=== PATIENT | male | born 1980 | race Two or more races ===

== ENCOUNTER 2019-06-12 11:30 | Emergency (ER) | payer MEDICAID, MEDICARE ==
[~2019-06-12] VITALS: Ht 188 cm; Wt 105.7 kg
[2019-06-12 11:32] VITALS: BP 127/81
--- NOTE | 2019-06-12 12:19 | NUR ---
PT PRESENTS W MEDICATION CHECK FOR DEPRESSION. PT STATES HE WANTS TO MAKE SURE HIS MEDICATION DOSE IS RIGHT SO HE DOESNT GO INTO MANIC DEPRESSION. PT IS IN [place] TO SEE HIS SON AND WANTS TO PRESENT WELL TO HIM. PT DENIES SI/HI. NO DRUG USE OR ETOH. PT IS PLEASANT AND THOUGHTFUL. ANSWERS ALL QUESTIONS APPROPIATELY. ALL BELONGINGS IN SECURED LOCKER. CELL PHONE AND WALLET W SECURITY. PA AT BEDSIDE.
[2019-06-12 12:42] LABS: BASOPHILS # (AUTO) 0.05 x10^3/uL (0-0.1); BASOPHILS % (AUTO) 1 % (0-1); EOSINOPHILS # (AUTO) 0.09 x10^3/uL (0-0.4); EOSINOPHILS % (AUTO) 1 % (1-7); LYMPHOCYTES # (AUTO) 3.23 x10^3/uL (1-3.4); LYMPHOCYTES % (AUTO) 31 % (22-44); MD NO; MEAN CORPUSCULAR HEMOGLOBIN 30.1 pg (27.5-34.5); MEAN CORPUSCULAR HGB CONC 33.1 g/dL (33.2-36.2); MEAN CORPUSCULAR VOLUME 90.8 fL (81-97); MEAN PLATELET VOLUME 7.8 fL (7.4-10.4); MONOCYTES % (AUTO) 7 % (2-9); NEUTROPHILS # (AUTO) 6.26 x10^3/uL (1.8-6.8); NEUTROPHILS % (AUTO) 61 % (42-75); PLATELET COUNT 327 x10^3/uL (130-400); RED BLOOD COUNT 4.85 x10^6/uL (4.38-5.82); RED CELL DISTRIBUTION WIDTH 14.4 % (9.4-14.8)
[2019-06-12 12:50] LABS: ALBUMIN 3.8 g/dL (3.4-5.0); ANION GAP 5 mmol/L (5-15); CALCIUM 8.9 mg/dL (8.5-10.1); CHLORIDE 105 mmol/L (98-107); CREATININE 1.28 mg/dL (0.7-1.3); SALICYLATE LEVEL < 1.7 mg/dL (2.8-20.0)
[2019-06-12 12:54] LABS: AMPHETAMINE SCREEN, URINE Negative (Negative); BARBITURATE SCREEN, URINE Negative (Negative); BENZODIAZEPINE SCREEN, URINE Negative (Negative); CANNABINOID SCREEN, URINE Negative (Negative); COCAINE SCREEN, URINE Negative (Negative); METHADONE SCREEN, URINE Negative (Negative); OPIATE SCREEN, URINE Negative (Negative)
--- NOTE | 2019-06-12 13:25 | NUR ---
OPERATIONS AND MAINTENANCE SUPERVISOR FOR EVAL OF PT. PT DOES NOT MEET CRITERIA FOR INPATIENT. PT WILL BE DC. ALL BELONGINGS BACK TO PT. CELL PHONE AND WALLET. PT LEFT. PROVIDER AWARE
== END 2019-06-12 13:48 | disposition home or self-care (01) ==
LOC: ED 12:39
DX: F32.9 Major depressive disorder, single episode, unspecified (principal); F41.9 Anxiety disorder, unspecified
CPT/HCPCS: 36415; 80048; 80307; 82040; 85025; 99284

== ENCOUNTER 2019-06-14 21:54 | Emergency (ER) | payer OTHER ==
[~2019-06-14] VITALS: Ht 188 cm; Wt 103.0 kg
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
[2019-06-14 22:46] LABS: AMPHETAMINE SCREEN, URINE Negative (Negative); BARBITURATE SCREEN, URINE Negative (Negative); BENZODIAZEPINE SCREEN, URINE Negative (Negative); CANNABINOID SCREEN, URINE Negative (Negative); COCAINE SCREEN, URINE Negative (Negative); METHADONE SCREEN, URINE Negative (Negative); OPIATE SCREEN, URINE Negative (Negative)
[2019-06-14 22:49] LABS: BASOPHILS # (AUTO) 0.04 x10^3/uL (0-0.1); BASOPHILS % (AUTO) 0 % (0-1); EOSINOPHILS # (AUTO) 0.09 x10^3/uL (0-0.4); EOSINOPHILS % (AUTO) 1 % (1-7); LYMPHOCYTES % (AUTO) 39 % (22-44); MD NO; MEAN CORPUSCULAR HEMOGLOBIN 29.4 pg (27.5-34.5); MEAN CORPUSCULAR HGB CONC 32.7 g/dL (33.2-36.2); MEAN CORPUSCULAR VOLUME 89.9 fL (81-97); MEAN PLATELET VOLUME 7.7 fL (7.4-10.4); MONOCYTES # (AUTO) 0.61 x10^3/uL (0.2-0.8); MONOCYTES % (AUTO) 6 % (2-9); NEUTROPHILS # (AUTO) 5.91 x10^3/uL (1.8-6.8); NEUTROPHILS % (AUTO) 54 % (42-75); PLATELET COUNT 303 x10^3/uL (130-400); RED BLOOD COUNT 5.03 x10^6/uL (4.38-5.82); RED CELL DISTRIBUTION WIDTH 15.1 % (9.4-14.8)
[2019-06-14 22:59] LABS: ALANINE AMINOTRANSFERASE 40 U/L (12-78); ALBUMIN 3.8 g/dL (3.4-5.0); ANION GAP 5 mmol/L (5-15); CALCIUM 9.1 mg/dL (8.5-10.1); CHLORIDE 106 mmol/L (98-107); CREATININE 1.38 mg/dL (0.7-1.3)
[2019-06-14 23:00] LABS: SALICYLATE LEVEL < 1.7 mg/dL (2.8-20.0)
[2019-06-14 23:01] LABS: ALKALINE PHOSPHATASE 71 U/L (45-117); BILIRUBIN,TOTAL 0.2 mg/dL (0.2-1.0); TOTAL PROTEIN 8.4 g/dL (6.4-8.2)
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
--- NOTE | 2019-06-14 23:55 | NUR ---
PT RESTING IN BED WATCHING TV, PT HAS SITTER AT PT DOOR, SI SECURE ROOM AND SI PRECAUTIONS ARE IN PLACE.
[2019-06-15] MEDS ORDERED: HALOPERIDOL 5 MG/ML IM PRN (00:30)
--- NOTE | 2019-06-15 01:13 | NUR ---
REFERRAL WAS FAXED TO [facility], [facility], [facility], [facility] AND [facility]
--- NOTE | 2019-06-15 02:39 | NUR ---
CALLED [facility] AND SPOKE TO DAVID THEY ARE NOT ACCEPT THE PT AT THIS TIME
--- NOTE | 2019-06-15 02:54 | NUR ---
PT RESTING IN BED WATCHING TV, PT HAS SITTER AT PT DOOR, SI SECURE ROOM AND SI PRECAUTIONS ARE IN PLACE. PT DENIED ANY NEEDS AT THIS TIME.
[2019-06-15] MEDS ORDERED: BENZONATATE 100 MG CAPSULE ONE (04:24)
[2019-06-15] MEDS ORDERED: BENZONATATE 100 MG CAPSULE PO ONE (04:30)
--- NOTE | 2019-06-15 06:01 | NUR ---
PT SLEEPING, PT HAS SITTER AT PT DOOR, SI SECURE ROOM AND SI PRECAUTIONS ARE IN PLACE. PT DENIED ANY NEEDS AT THIS TIME.
[2019-06-15] MEDS ORDERED: GUAIFENESIN 100 MG/5 ML, 5ML UDC PO ONE (06:38)
--- NOTE | 2019-06-15 06:44 | NUR ---
PT C/O SORE THROAT AND COUGH, PT REQUESTED ROBITISSIN. RN NOTIFIED DR
--- NOTE | 2019-06-15 06:58 | NUR ---
REPORT RECEIVED FROM MATT AMIN.
--- NOTE | 2019-06-15 06:59 | NUR ---
MEAL TRAY ORDERED AT THIS TIME.
[2019-06-15 07:08] VITALS: BP 141/83
--- NOTE | 2019-06-15 07:08 | NUR ---
PT MEDICATED PER EMAR. PT TOLERATED WELL.
--- NOTE | 2019-06-15 07:50 | NUR ---
MEAL TRAY PROVIDED AT THIS TIME.
--- NOTE | 2019-06-15 08:50 | NUR ---
PT RESTING IN BED. PT'S AOX4. RESPS EVEN AND UNLABORED. SITTER MONITORING FROM [facility] FOR SAFETY.
--- NOTE | 2019-06-15 10:27 | NUR ---
PT SLEEPING IN BED. RESPS EVEN AND UNLABORED. SITTER MONITORING FROM [facility] FOR SAFETY.
--- NOTE | 2019-06-15 10:40 | NUR ---
PT AMB TO BR WITH STEADY GAIT.
[2019-06-15] MEDS ORDERED: LURA120T PO (10:57)
[2019-06-15] MEDS ORDERED: DIVA500T2 PO (10:58)
[2019-06-15] MEDS ORDERED: HYDR50TA13 PO (10:59)
[2019-06-15] MEDS ORDERED: PRAZ5CAP2 PO (10:59)
--- NOTE | 2019-06-15 11:13 | NUR ---
MEAL TRAY ORDERED AT THIS TIME.
--- NOTE | 2019-06-15 11:52 | NUR ---
LUNCH TRAY PROVIDED AT THIS TIME.
--- NOTE | 2019-06-15 12:05 | NUR ---
REPORT GIVEN TO MAYKEL AT [facility].
[2019-06-15] MEDS ORDERED: DIVALPROEX 500 MG TABLET.DR PO ONE (13:11)
--- NOTE | 2019-06-15 13:11 | NUR ---
PT REQUESTING MEDICATIONS. EDMD NOTIFIED.
[2019-06-15] MEDS ORDERED: DIVALPROEX 500 MG TABLET.DR ONE (13:20)
--- NOTE | 2019-06-15 13:25 | NUR ---
PT MEDICATED PER EMAR. PT TOLERATED WELL.
--- NOTE | 2019-06-15 14:10 | NUR ---
PT AMB TO EXIT WITH [facility]. PT'S AOX4. RESPS EVEN AND UNLABORED.
== END 2019-06-15 14:10 ==
LOC: ED 22:56
DX: F23 Brief psychotic disorder (principal); F32.9 Major depressive disorder, single episode, unspecified; R45.851 Suicidal ideations; F17.210 Nicotine dependence, cigarettes, uncomplicated; Z88.8 Allergy status to other drugs, medicaments and biological substances; Z91.040 Latex allergy status
CPT/HCPCS: 36415; 80053; 80307; 85025; 99285; Q0177

== ENCOUNTER 2019-07-08 18:47 | Emergency (ER) | payer OTHER ==
[~2019-07-08] VITALS: Ht 188 cm; Wt 104.0 kg
[~2019-07-08 18:47] MED LIST: DIVA500T2 PO; HYDR50TA13 PO; LURA120T PO; PRAZ5CAP2 PO
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
[2019-07-08 19:48] VITALS: BP 140/98
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
== END 2019-07-08 19:56 | disposition other institution (70) ==
LOC: ED 19:09
DX: F10.10 Alcohol abuse, uncomplicated (principal); F12.10 Cannabis abuse, uncomplicated; F41.9 Anxiety disorder, unspecified; F20.9 Schizophrenia, unspecified; F32.9 Major depressive disorder, single episode, unspecified; F29 Unspecified psychosis not due to a substance or known physiological condition; Z72.9 Problem related to lifestyle, unspecified; Z91.14 Patient's other noncompliance with medication regimen; Z63.8 Other specified problems related to primary support group; Y90.9 Presence of alcohol in blood, level not specified
CPT/HCPCS: 99281

== ENCOUNTER 2019-07-30 13:57 | Emergency (ER) | payer OTHER ==
[~2019-07-30] VITALS: Ht 188 cm; Wt 109.0 kg
[2019-07-30 14:07] VITALS: BP 144/81
--- NOTE | 2019-07-30 15:11 | NUR ---
ASSUMED CARE OF PATIENT.
--- NOTE | 2019-07-30 15:43 | NUR ---
PT DISCHARGED PER DR MUSTAFA.
== END 2019-07-30 15:53 | disposition home or self-care (01) ==
LOC: ED 15:48
DX: J06.9 Acute upper respiratory infection, unspecified (principal); F17.200 Nicotine dependence, unspecified, uncomplicated
CPT/HCPCS: 71045; 99283

== ENCOUNTER 2019-07-30 18:10 | Emergency (ER) | payer SELFPAY ==
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
== END 2019-07-30 20:26 | disposition home or self-care (01) ==
LOC: ED 18:37
DX: M25.562 Pain in left knee (principal); Z72.9 Problem related to lifestyle, unspecified; Y08.89XA Assault by other specified means, initial encounter; Y93.89 Activity, other specified; Y92.89 Other specified places as the place of occurrence of the external cause; Y99.8 Other external cause status
CPT/HCPCS: 99283

== ENCOUNTER 2019-10-24 09:47 | Emergency (ER) | payer MEDICARE ==
[~2019-10-24] VITALS: Ht 188 cm; Wt 109.1 kg
[~2019-10-24 09:47] MED LIST changes: -HYDR50TA13 PO; +HYDR50TA99 PO
[2019-10-24 10:29] LABS: BASOPHILS # (AUTO) 0.02 x10^3/uL (0-0.1); BASOPHILS % (AUTO) 0 % (0-1); EOSINOPHILS # (AUTO) 0.14 x10^3/uL (0-0.4); EOSINOPHILS % (AUTO) 1 % (1-7); LYMPHOCYTES # (AUTO) 2.28 x10^3/uL (1-3.4); LYMPHOCYTES % (AUTO) 21 % (22-44); MD NO; MEAN CORPUSCULAR HEMOGLOBIN 30.1 pg (27.5-34.5); MEAN CORPUSCULAR HGB CONC 33.4 g/dL (33.2-36.2); MEAN CORPUSCULAR VOLUME 90.2 fL (81-97); MEAN PLATELET VOLUME 8.3 fL (7.4-10.4); MONOCYTES # (AUTO) 0.68 x10^3/uL (0.2-0.8); MONOCYTES % (AUTO) 6 % (2-9); NEUTROPHILS # (AUTO) 8.01 x10^3/uL (1.8-6.8); NEUTROPHILS % (AUTO) 72 % (42-75); PLATELET COUNT 265 x10^3/uL (130-400); RED BLOOD COUNT 4.53 x10^6/uL (4.38-5.82)
[2019-10-24 10:42] LABS: ALBUMIN 3.7 g/dL (3.4-5.0); ANION GAP 9 mmol/L (5-15); CALCIUM 9.6 mg/dL (8.5-10.1); CHLORIDE 105 mmol/L (98-107); CREATININE 1.22 mg/dL (0.7-1.3)
[2019-10-24 10:44] LABS: SALICYLATE LEVEL < 1.7 mg/dL (2.8-20.0)
[2019-10-24 10:48] LABS: AMPHETAMINE SCREEN, URINE Negative (Negative); BARBITURATE SCREEN, URINE Negative (Negative); BENZODIAZEPINE SCREEN, URINE Negative (Negative); CANNABINOID SCREEN, URINE Negative (Negative); COCAINE SCREEN, URINE Negative (Negative); METHADONE SCREEN, URINE Negative (Negative); OPIATE SCREEN, URINE Negative (Negative)
--- NOTE | 2019-10-24 10:50 | NUR ---
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 Sheldon in room to evaluate pt, refusing to answer MDs questions. Once MD left room this RN instructed pt to change into hospital gown and place all belongings into bags so they can be secured. Pt cooperative with this RN as well as labor relations representative who is at bedside to collect ordered blood sample. Pt able to change into hospital gown, warm blanket provided. All pt belongings placed in 2 bags, labeled with pt stickers and secured in locker. Room is secured, sitter within eyesight of pt, all safety measures observed.
--- NOTE | 2019-10-24 11:23 | NUR ---
Pt requesting "a snack right now then lunch at noon". Pt advised that meal tray will be ordered from dietary office. Pt states "That's not what I said." This RN advised pt that meal tray will be ordered for him and delivered as soon as it arrives. Pt states "Get out of my room". This RN left pt room. Room remains secured, sitter within eyesight of pt, all safety measures observed.
--- NOTE | 2019-10-24 11:59 | NUR ---
Meal tray delivered to pt with SI precautions observed.
[2019-10-24] MEDS ORDERED: HALOPERIDOL 5 MG/ML IM ONE (12:30)
--- NOTE | 2019-10-24 12:45 | NUR ---
REPORT RECEIVED FROM BRENNAN AGUILAR. ASSUMED CARE
[2019-10-24] MEDS ORDERED: HALOPERIDOL 5 MG/ML IM PRN (13:00)
[2019-10-24] MEDS ORDERED: HALOPERIDOL 5 MG/ML ONE (13:00)
[2019-10-24] MEDS ORDERED: OLANZAPINE 10 MG INJ IM PRN (13:00)
--- NOTE | 2019-10-24 15:05 | NUR ---
PT RESTING IN [facility]. TALKING TO HIMSELF.
--- NOTE | 2019-10-24 15:50 | NUR ---
PACKET FAXED TO [facility] AND [facility]
--- NOTE | 2019-10-24 15:51 | NUR ---
PT WALKED OUT OF ROOM WAS YELLING AT REGISTRATION STAFF TO BRING HIM FOOD. WHEN CONFRONTED HE SAID "GET THE FUCK OUT OF MY FACE BEFORE I HIT YOU". SECURITY WAS CALLED AND HE PT WAS ESCORTED BACK TO HIS ROOM.
[2019-10-24] MEDS: DIVALPROEX 500 MG TABLET.DR PO SCH (16:00)
--- NOTE | 2019-10-24 17:54 | NUR ---
SPOKE WITH [facility]. THEY WILL NOT BE ACCEPTING HIM AT THIS TIME ALSO SPOKE WITH AMY SARMIENTO FOR A NURSE TO NURSE. AWAITING THEIR DECISION.
--- NOTE | 2019-10-24 18:10 | NUR ---
PT PROVIDED SUICIDE SECURED MEAL TRAY
[2019-10-24] MEDS ORDERED: DIVALPROEX 500 MG TAB.ER.24H ONE (20:36)
--- NOTE | 2019-10-24 20:46 | NUR ---
PT RESTING IN [facility]. WATER GIVEN
--- NOTE | 2019-10-24 20:58 | NUR ---
PT TOLD ME "TO GO FUCK MYSELF" WHEN I WAS ATTEMPTING TO ASK SUICIDE ASSESSMENT QUESTIONS
[2019-10-24] MEDS ORDERED: LORazepam 2 MG/ML, 1ML ONE (23:25)
[2019-10-24] MEDS ORDERED: LORazepam 2 MG/ML, 1ML IM ONE (23:30)
--- NOTE | 2019-10-24 23:30 | NUR ---
REPORT FROM BRENNAN TSANG
--- NOTE | 2019-10-25 00:15 | NUR ---
PT SINGING, DANCING AND DOING PUSHUPS IN THE ROOM. PT DEMANDING FOOD AND DRINKS. PT REFUSING TO STAY IN HIS ROOM AND QUIET HIS VOICE. SECURITY CALLED AND PT MEDICATED FOR AGITATION.
[2019-10-25] MEDS ORDERED: DIPHENHYDRAMINE 50 MG/ML, 1ML ONE (00:29)
--- NOTE | 2019-10-25 00:59 | NUR ---
REPORT RECEIVED FROM BRENNAN MARQUES. PLAN OF CARE DISCUSSED. PATIENT SLEEPING, RESPIRATIONS EVEN AND UNLABORED. SITTER AT DOOR.
--- NOTE | 2019-10-25 01:59 | NUR ---
PATIENT SLEEPING, RESPIRATIONS EVEN AND UNLABORED. SITTER AT DOOR.
--- NOTE | 2019-10-25 03:18 | NUR ---
PATIENT SLEEPING, RESPIRATIONS EVEN AND UNLABORED. SITTER AT DOOR.
--- NOTE | 2019-10-25 04:30 | NUR ---
PATIENT SLEEPING, RESPIRATIONS EVEN AND UNLABORED. SITTER AT DOOR.
--- NOTE | 2019-10-25 05:15 | NUR ---
PATIENT PROVIDED WITH SOCKS
--- NOTE | 2019-10-25 05:34 | NUR ---
PATIENT AWAKE AND SINGING QUIETLY TO SELF, NAD NOTED, RESPIRATIONS EVEN AND UNLABORED. SITTER AT DOOR.
--- NOTE | 2019-10-25 06:36 | NUR ---
PATIENT SEEN WALKING TO AND FROM BATHROOM MULTIPLE TIMES, SINGING AND TALKING LOUDLY IN HALLWAY. PATIENT TRYING TO GET INTO ROOM ONE, WHILE THIS NURSE INTAKING PATIENT BIB EMS. PATIENT INSTRUCTED TO GO BACK TO HIS ROOM.
--- NOTE | 2019-10-25 06:59 | NUR ---
REPORT GIVEN TO BRENNAN RUBI. PLAN OF CARE DISCUSSED. WAITING FOR PHARMACY TO SEND IM ZYPREXA
--- NOTE | 2019-10-25 07:24 | NUR ---
PT RESTING IN BED, BLANKET PROVIDED, SAFETY PRECAUTIONS IN PLACE.
[2019-10-25] MEDS: DIVALPROEX 500 MG TABLET.DR PO SCH ×4 (09:00→20:07)
[2019-10-25] MEDS: LURASIDONE 20 MG TABLET PO SCH (09:16)
[2019-10-25] MEDS ORDERED: LORazepam 1MG TABLET PO ONE (11:30)
[2019-10-25] MEDS ORDERED: LORazepam 1MG TABLET ONE (11:42)
[2019-10-25] MEDS ORDERED: DIVALPROEX 500 MG TABLET.DR ONE ×2 (11:47→20:04)
--- NOTE | 2019-10-25 12:05 | NUR ---
MEAL PROVIDED, SAFETY PRECAUTIONS IN PLACE.
--- NOTE | 2019-10-25 13:41 | NUR ---
shower provided, safety precautions in place.
--- NOTE | 2019-10-25 14:24 | NUR ---
[facility] STILL NOT ACCEPTING
--- NOTE | 2019-10-25 17:42 | NUR ---
TALKED TO GENE AT [facility]. FAXED UPDATED PACKET PER HIS REQUEST
--- NOTE | 2019-10-25 18:02 | NUR ---
MEAL PROVIDED, SAFETY PRECAUTIONS IN PLACE.
--- NOTE | 2019-10-25 18:47 | NUR ---
REPORT TO ISAI AMIN
--- NOTE | 2019-10-25 18:56 | NUR ---
REPORT FROM GREYSON AMIN. PT RESTING WITH NO NEEDS AT THIS TIME. ROOM SECURED AND SITTER IN VIEW OF PT.
--- NOTE | 2019-10-25 19:52 | NUR ---
pt up to bathroom. Pt has no other needs at this time. sitter in view of pt
--- NOTE | 2019-10-25 20:08 | NUR ---
pt given night medications. pt becoming increasingly agitated but is redirectable at this time.
--- NOTE | 2019-10-25 21:15 | NUR ---
PT CALMER NOW AND IN BED. VSS. SITTER IN VIEW OF PT.
--- NOTE | 2019-10-25 22:32 | NUR ---
PT LAYING IN BED AND CALLING OUT OCCASIONALLY. PT DENIES ANY NEEDS AT THIS TIME. SITTER IN VIEW OF PT.
--- NOTE | 2019-10-26 00:05 | NUR ---
Pt sleeping. even rise and fall of chest observed. Sitter in view of pt
--- NOTE | 2019-10-26 01:09 | NUR ---
Pt up to bathroom with a steady gait. has no needs at this time. sitter in view of pt
--- NOTE | 2019-10-26 02:21 | NUR ---
PT SLEEPING. EVEN RISE AND FALL OF CHEST OBSERVED. SITTER IN VIEW OF PT
--- NOTE | 2019-10-26 03:17 | NUR ---
PT SLEEPING. EVEN RISE AND FALL OF CHEST OBSERVED. SITTER IN VIEW OF PT
--- NOTE | 2019-10-26 04:16 | NUR ---
pT RESTING WITH EYES CLOSED. EVEN RISE AND FALL OF CHEST OBSERVED. PT IN NAD. SITTER IN VIEW OF PT.
--- NOTE | 2019-10-26 05:20 | NUR ---
PT AWAKE AND TALKING TO SITTER. PT HAS NO NEEDS AT THIS TIME AND APPEARS TO BE IN A GOOD MOOD THIS MORNING
--- NOTE | 2019-10-26 06:21 | NUR ---
PT UP TO BATHROOM WITH NO NEEDS AT THIS TIME.
--- NOTE | 2019-10-26 06:52 | NUR ---
REPORT RECEIVED FROM ISAI AMIN.
[2019-10-26 07:14] VITALS: BP 131/80
--- NOTE | 2019-10-26 07:16 | NUR ---
PT AMB TO BR AND BACK TO ROOM WITH STEADY GAIT
--- NOTE | 2019-10-26 07:18 | NUR ---
PT AWAKE AND TALKING HIMSELF AT THIS TIME. SITTER MONITORING FROM HALLWAY FOR SAFETY. ROOM REMAINS SECURE. PT DENIES SI/HI AND SUICIDAL ASSESSMENT DONE.
--- NOTE | 2019-10-26 07:46 | NUR ---
medication ordered from pharmacy at this time.
--- NOTE | 2019-10-26 08:14 | NUR ---
pt using hospital phone per request. sitter monitoring.
[2019-10-26] MEDS ORDERED: DIVALPROEX 500 MG TABLET.DR ONE (08:17)
[2019-10-26] MEDS: DIVALPROEX 500 MG TABLET.DR PO SCH (08:31)
[2019-10-26] MEDS: LURASIDONE 20 MG TABLET PO SCH (08:32)
--- NOTE | 2019-10-26 08:35 | NUR ---
pt medicated per emar. pt tolerated well.
--- NOTE | 2019-10-26 09:07 | NUR ---
pt taking shower per pt's request. sitter monitoring.
--- NOTE | 2019-10-26 09:50 | NUR ---
after shower, pt denies to dress. pt nakid in room. this rn and sitter educated regarding policy. pt states"i don't wanna dress now.i will do later." security paged.
--- NOTE | 2019-10-26 10:20 | NUR ---
pt used hospital phone per pt's request.
--- NOTE | 2019-10-26 10:52 | NUR ---
report given to rona Landin will call back when it's ready.
--- NOTE | 2019-10-26 11:05 | NUR ---
PT STATES"I WANNA LEAVE NOW. I WANNA TALK TO MY COMMERCIAL LENDING ASSISTANT." THIS RN EDUCATED REGARDING LEGAL HOLD. PT VERBALIZED UNDERSTANDING.
== END 2019-10-26 12:03 ==
LOC: ED 10:14
DX: G89.29 Other chronic pain (principal); M79.672 Pain in left foot; M79.671 Pain in right foot; F23 Brief psychotic disorder; R00.0 Tachycardia, unspecified; F17.200 Nicotine dependence, unspecified, uncomplicated; Z00.00 Encounter for general adult medical examination without abnormal findings
CPT/HCPCS: 36415; 73620; 80048; 80164; 80307; 82040; 85025; 93005; 96372; 99285; J1630; J2060

== ENCOUNTER 2019-12-07 13:16 | Emergency (ER) | payer MEDICARE ==
[~2019-12-07] VITALS: Ht 188 cm; Wt 103.0 kg
[2019-12-07] MEDS ORDERED: LURA120T PO (13:41)
[2019-12-07] MEDS ORDERED: DIVA500T4 PO (13:41)
--- NOTE | 2019-12-07 13:51 | NUR ---
THIS PT WAS ESCORTED IN WITH LAW ENFORCEMENT. PT TALKING TO AREA OF ROOM WHERE NO ONE IS STANDING, TALKING WHEN NO ONE IS IN THE ROOM. PT MAKING GRANDEOUS STATEMENTS, HAS FLIGHT OF IDEAS. COOPERATIVE AT THIS TIME. WILL CONTINUE TO MONITOR. PT IN VIEW OF SITTER.
[2019-12-07 14:04] LABS: BASOPHILS # (AUTO) 0.04 x10^3/uL (0-0.1); BASOPHILS % (AUTO) 1 % (0-1); EOSINOPHILS % (AUTO) 2 % (1-7); LYMPHOCYTES # (AUTO) 1.88 x10^3/uL (1-3.4); LYMPHOCYTES % (AUTO) 31 % (22-44); MD NO; MEAN CORPUSCULAR HEMOGLOBIN 30.2 pg (27.5-34.5); MEAN CORPUSCULAR HGB CONC 33.5 g/dL (33.2-36.2); MEAN CORPUSCULAR VOLUME 90.1 fL (81-97); MEAN PLATELET VOLUME 8.6 fL (7.4-10.4); MONOCYTES # (AUTO) 0.31 x10^3/uL (0.2-0.8); MONOCYTES % (AUTO) 5 % (2-9); NEUTROPHILS # (AUTO) 3.76 x10^3/uL (1.8-6.8); NEUTROPHILS % (AUTO) 62 % (42-75); PLATELET COUNT 224 x10^3/uL (130-400); RED BLOOD COUNT 4.53 x10^6/uL (4.38-5.82)
[2019-12-07 14:14] LABS: ALBUMIN 3.7 g/dL (3.4-5.0); ANION GAP 7 mmol/L (5-15); CALCIUM 8.9 mg/dL (8.5-10.1); CHLORIDE 107 mmol/L (98-107); CREATININE 1.44 mg/dL (0.7-1.3)
[2019-12-07 14:16] LABS: SALICYLATE LEVEL < 1.7 mg/dL (2.8-20.0)
[2019-12-07 14:17] LABS: ALANINE AMINOTRANSFERASE 22 U/L (12-78); ALKALINE PHOSPHATASE 55 U/L (45-117); BILIRUBIN,TOTAL 0.4 mg/dL (0.2-1.0); TOTAL PROTEIN 7.8 g/dL (6.4-8.2)
--- NOTE | 2019-12-07 14:29 | NUR ---
PT REFUSING VITAL SIGNS FOR RESTRAINTS, PT REMAINS CALM.
[2019-12-07] MEDS ORDERED: LURASIDONE 20 MG TABLET PO SCH (14:30)
[2019-12-07 14:36] LABS: AMPHETAMINE SCREEN, URINE Negative (Negative); BARBITURATE SCREEN, URINE Negative (Negative); BENZODIAZEPINE SCREEN, URINE Negative (Negative); CANNABINOID SCREEN, URINE Negative (Negative); COCAINE SCREEN, URINE Negative (Negative); METHADONE SCREEN, URINE Negative (Negative); OPIATE SCREEN, URINE Negative (Negative)
--- NOTE | 2019-12-07 15:35 | NUR ---
PT URINATED ON FLOOR X2, BOTH TIMES, HE REFUSED HELP FROM A MALE TO HOLD THE URINAL. STATES HE WILL ONLY GO IF THIS RN OR OSHAUNESSY HOLDS IT OTHERWISE HE WILL CONTINUE TO PEE ON THE FLOOR.
--- NOTE | 2019-12-07 16:17 | NUR ---
PT SHIMMING IN BED TO UNCOVER HIS PENIS, EDUCATED THAT THIS IS INAPPRORIATE AND RECOVERED, PT CONTINUES BEHAVIOR. Addendum: 12/07/19 at 1723 by BJORN MAGI
--- NOTE | 2019-12-07 16:59 | NUR ---
Attempted to inquire with patient about his birthdate as their is two patients in our system with similar birthdates [birth year] and [birth year] and the same name, but patient refused to talk to this MT and attempted to spit on this MT.
--- NOTE | 2019-12-07 17:10 | NUR ---
PT REFUSED TO COVER SELF/ PENIS. PT ASKING FOR FEMALE NURSE TO COVER HIM. MALE NURSE SENT IN. PT ATTEMPTED TO SIT ON THAT NURSE.
[2019-12-07] MEDS: OLANZAPINE 10 MG INJ IM PRN (17:20)
--- NOTE | 2019-12-07 17:21 | NUR ---
PT MAKING THREATS TO RN BEFORE BEING MEDICATED, PT STILL ASKED FOR MEDICATION. PT MEDICATED TO MAR. BANEGAS AT BEDSIDE.
--- NOTE | 2019-12-07 17:27 | NUR ---
PT HAS SHIFTED IN BED TO AGAIN EXPOSE HIMSELF. YELLING AT NURSES OR TECHS WHO ATTEMPT TO GO IN TO TALK WITH HIM.
--- NOTE | 2019-12-07 18:08 | NUR ---
PT COOPERATIVE WITH INTERVENTIONS. PT SINGING TO SELF. DIET TRAY ORDERED. WILL CONITNUE TO MONITOR.
--- NOTE | 2019-12-07 18:10 | NUR ---
PT HAS REMAINED IN VIEW OF THE SITTER THROUGHOUT STAY.
[2019-12-07] MEDS ORDERED: DIVALPROEX 500 MG TAB.ER.24H ONE (18:28)
--- NOTE | 2019-12-07 18:30 | NUR ---
PT EATING FOOD, COMPLAINT WITH VS.
--- NOTE | 2019-12-07 19:14 | NUR ---
REPORT GIVEN TO BRENNAN FRAIRE. PT LAYING IN BED, EYES CLOSED, RESPIRATIONS EVEN AND UNLABORED.
--- NOTE | 2019-12-07 19:17 | NUR ---
BEDSIDE REPORT RECEIVED FROM BRENNAN BUTCHER. ASSUMED CARE OF PT. PT SLEEPING. NO DISTRESS NOTED. SITTER OUTSIDE DOOR MONITORING PT. ROOM REMAINS SECURE.
--- NOTE | 2019-12-07 19:35 | NUR ---
PT COUGHING FREQUENTLY. DENIES ANY OTHER COMPLAINTS. CHARGE, RN. AWARE. WILL CONTACT ADMITTING PHYSICIAN.
--- NOTE | 2019-12-07 20:23 | NUR ---
DR. MELGOZA AWARE OF COUGHING. ORDER PUT IN FOR COVID TEST. PT REQUESTING FOOD. SECURITY TRAY PROVIDED TO PT. SITTER MONITORING PT. ROOM REMAINS SECURE.
--- NOTE | 2019-12-07 20:49 | NUR ---
PT IN ROOM MASTURBATING. PT ASKED TO STOP. ADAMANTLY REFUSES STATING "WHY THIS IS MY HOUSE, I DO WHAT I WANT HERE". SECURITY CALLED. COVID SWAB DELAYED DUE TO PT NOT BEING COOPERATIVE AT THIS TIME.
[2019-12-07] MEDS ORDERED: OLANZAPINE 10 MG INJ IM ONE (21:00)
[2019-12-07] MEDS: DIVALPROEX 500 MG TAB.ER.24H PO SCH (21:00)
[2019-12-07] MEDS ORDERED: MIDAZOLAM 1 MG/ML, 5ML IM ONE (21:00)
[2019-12-07] MEDS ORDERED: QUETIAPINE 100MG TABLET PO SCH ×2 (21:00→23:30)
--- NOTE | 2019-12-07 21:00 | NUR ---
SECURITY CALLED DUE TO PT BECOMING ERRATIC AND NOT COOPERATING WITH STAFF, PT BECAME AGGRESSIVE AND YELLING AT STAFF. PT PLACED IN [address] HE PROVIDED ORDER.
--- NOTE | 2019-12-07 22:01 | NUR ---
PT CONTINUES TO SLEEP INTERMITTENTLY. WAKES UP AND YELLS AT STAFF. ATTEMPTED TO SPEAK TO PT IN REGARDS TO REMOVING RESTRAINTS. PT UNABLE TO HOLD CONVERSATION WITHOUT BEING THREATENING TO STAFF. NOT DISPLAYING BEHAVIORS CONSISTENT WITH REMOVING RESTRAINTS. REFUSING NIGHT TIME MEDS. PT ALSO SPITTING AT STAFF.
[2019-12-07] MEDS ORDERED: MIDAZOLAM 1 MG/ML, 2ML ONE (23:12)
[2019-12-07] MEDS ORDERED: MIDAZOLAM 1 MG/ML, 5ML ONE (23:14)
[2019-12-07] MEDS ORDERED: LORazepam 1MG TABLET ONE (23:27)
[2019-12-07] MEDS ORDERED: QUETIAPINE 100MG TABLET ONE (23:27)
[2019-12-07] MEDS ORDERED: LORazepam 1MG TABLET PO ONE (23:30)
--- NOTE | 2019-12-07 23:32 | NUR ---
REPORT GIVEN TO BRENNAN BASILIO. PT MOVED TO ROOM 40
--- NOTE | 2019-12-07 23:59 | NUR ---
Report received from BRENNAN Alvarez. This RN assumed care. Versed admin per sep. PO meds held; patient refused.
--- NOTE | 2019-12-08 00:20 | NUR ---
Patient remains in restraints for safety; status checks documented. Patient sleeping in gurney. Respirations even and unlabored. Sitter outside, room secured, belongings in locked cabinet.
--- NOTE | 2019-12-08 01:30 | NUR ---
Patient easily arousable; attempted vital signs however patient became agitated and uncooperative, spitting at staff and thrashing around.
--- NOTE | 2019-12-08 01:32 | NUR ---
Patient remains in restraints for safety; status checks documented. Patient sleeping in gurney. Respirations even and unlabored. Sitter outside, room secured, belongings in locked cabinet.
--- NOTE | 2019-12-08 02:30 | NUR ---
Patient remains in restraints for safety; status checks documented. Patient sleeping in gurney. Respirations even and unlabored. Sitter outside, room secured, belongings in locked cabinet.
--- NOTE | 2019-12-08 03:00 | NUR ---
Patient awoke requesting to use the bathroom; provided urinal. Patient is calmer and cooperative.
[2019-12-08] MEDS ORDERED: LORazepam 1MG TABLET PO ONE ×2 (03:30→09:30)
--- NOTE | 2019-12-08 03:30 | NUR ---
Patient requesting to be let out of restraints and provided with food. Advised patient we can release two of his restraints and provide food. 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 You are holding me against my will. I have insurance; I do not have Medicaid, I am not homelses, and I am paying for this stay even though I do not want to be here. I have a lot of money." Attempted to admin PO meds to calm patient however he refused.
[2019-12-08] MEDS ORDERED: LORazepam 1MG TABLET ONE ×2 (03:31→09:30)
[2019-12-08] MEDS ORDERED: ZIPRASIDONE 20 MG INJ IM ONE ×4 (03:38→20:00)
--- NOTE | 2019-12-08 03:46 | NUR ---
GURDEEP RN: PACKET FAXED TO [facility].
--- NOTE | 2019-12-08 03:50 | NUR ---
Admin IM meds per sep. Patient extremely agitated and angry. Patient attempting to spit on staff. Restraints to remain on patient for safety. Status checks documented. Unable to get a set of vitals at this time due to patient behavior. Sitter outside, room secured, belongings locked in cabinet.
--- NOTE | 2019-12-08 04:45 | NUR ---
Patient remains in restraints for safety; status checks documented. Patient sleeping in gurney. Respirations even and unlabored. Patient easily arousable and becomes agitated. Sitter outside, room secured, belongings in locked cabinet.
--- NOTE | 2019-12-08 05:30 | NUR ---
Patient awake and touching himself inappropriately. Patient remains in restraints for safety; status checks documented. Respirations even and unlabored. Sitter outside, room secured, belongings in locked cabinet.
--- NOTE | 2019-12-08 07:09 | NUR ---
PT RESTING ON [facility]. SITTER OUTSIDE ROOM, GARAGE DOORS DOWN.
--- NOTE | 2019-12-08 08:40 | NUR ---
PT UNCOVERING HIMSELF IN ROOM, SPEAKING LOUDLY TOO HIMSELF. WENT INTO ROOM TO PLACE GOWN OVER PT. PT BEING VERBALLY AGGRESSIVE TOWARDS THIS RN. PT EDUCATED ON NEED TO COVER UP. MAKING STATEMENTS SUCH "I DON'T HAVE TO DO SHIT, THIS IS MY ROOM I PAID FOR THIS, WHERE THE FUCK IS MY BREAKFAST, YOU'RE GOING TO GET ME BREAKFAST WHETHER I COVER UP OR NOT".
--- NOTE | 2019-12-08 09:21 | NUR ---
TASK RN: WITH REASSESMENT PATIENT ORIENTED TO PLACE/TIME/REASON FOR HOSPITALIZATION. HOWEVER ACUTELY DELUSIONAL "YOU HAVE NO RIGHT TO KEEP ME HERE. I HAVE NO LEGAL CHARGE. 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 I MAKE THE CALL BITCH." AFTER EXTENSIVE RE-DIRECTION PATIENT AGREEABLE TO TAKING PO PILLS (DAILY + PRN) WHICH WILL HOPEFULLY CALM/REDUCE DELUSIONS ENOUGH THAT IT WILL BE SAFE TO REMOVE RESTRAINTS. PHARMACY CALLED TO DELIVER LATUDA. PHARMACY REPORTS MEDICINE WILL BE READY " SOON WE CAN ENTER IT INTO OUR SYSTEM. MAYBE UP TO A FEW HOURS OR SO."
[2019-12-08] MEDS ORDERED: DIVALPROEX 500 MG TAB.ER.24H ONE (09:29)
--- NOTE | 2019-12-08 09:45 | NUR ---
TASK RN: PATIENT REFUSING PO MEDS ORDERED LATUDA DOSE IN "SUPPOSED TO BE 120MG NOT 40MG." TO NOTIFY PROVIDER. WILL DOSE WITH PRNS VIA IM ROUTE TO EXPEDITE RESTRAINT DISCONTINUATION ULICES
[2019-12-08] MEDS ORDERED: MIDAZOLAM 1 MG/ML, 2ML IM STA (09:55)
[2019-12-08] MEDS ORDERED: MIDAZOLAM 1 MG/ML, 2ML ONE (09:58)
[2019-12-08] MEDS: OLANZAPINE 10 MG INJ IM PRN (10:15)
--- NOTE | 2019-12-08 10:15 | NUR ---
MEDICATED PER EMAR WITH IM VERSED AND ZYPREXA. PLACED ON INDUSTRIAL FABRIC CUTTER 2L NC PRECAUTION
--- NOTE | 2019-12-08 10:45 | NUR ---
PT RESTING ON GURNEY, REFUSING MONITORING. CHEST RISE AND FALL OBSERVED. SITTER OUTSIDE ROOM. WILL CONTINUE TO MONITOR.
[2019-12-08] MEDS ORDERED: LURASIDONE 20 MG TABLET PO SCH (11:00)
--- NOTE | 2019-12-08 11:45 | NUR ---
PT SEEN BY LILIA DAWSON.
--- NOTE | 2019-12-08 11:55 | NUR ---
MED GASTON FROM PHARMACY.
--- NOTE | 2019-12-08 12:04 | NUR ---
PT RESTING ON GURNEY, CHEST RISE AND FALL OBSERVED. SITTER OUTSIDE OF ROOM.
--- NOTE | 2019-12-08 13:15 | NUR ---
SECURITY CALLED TO ASSIST THIS RN IN TAKING OFF ONE ARM RESTRAINT TO ALLOW PT TO EAT.
--- NOTE | 2019-12-08 13:19 | NUR ---
RIGHT ARM RESTRAINT RELEASED TO ALLOW PT TO EAT.
--- NOTE | 2019-12-08 13:46 | NUR ---
PT COOPERATIVE W/ VS. URINATED ON FLOOR, MOVING PENIS WHILE THIS RN WAS IN THE ROOM.
--- NOTE | 2019-12-08 14:05 | NUR ---
REMOVED ONE LEG RESTRAINT TO TRIAL HOW PT WOULD DO W/ ONLY 2 RESTRAINTS. PT MADE STATMENTS SUCH "YOU'RE LYING TO AN SCRIPT EDITOR LITTLE GIRL" AND "DON'T TALK TO ME FAT ASS", "GET OUT OF MY ROOM WHITE BOY". PT INFORMED WE WERE NOT TAKING OFF ALL RESTRAINTS AT THIS TIME BECAUSE WE WANTED TO ASSESS HIS BEHAVIOR. PT INFORMED HE CAN NOT BE VERBALLY OR PHYSICALLY AGGRESSIVE TOWARDS STAFF. WILL REASSESS PT FOR NEED FOR RESTRAINTS.
--- NOTE | 2019-12-08 14:35 | NUR ---
PT SITTING UP ON BED MASTURBATING. REQUESTED TO STOP. PT REFUSES. EDUCATED ON HOW IT IS INAPPROPRIATE. PT STATES "THIS IS MY FUCKING HOUSE I CAN DO WHATEVER I WANT".
--- NOTE | 2019-12-08 16:02 | NUR ---
BREAK RN. PT RESTING BED, SPEAKING TO HIMSELF. ROOM REMAINS SECURED, SITTER AT BEDSIDE.
--- NOTE | 2019-12-08 16:39 | NUR ---
PT COOPERATIVE AND CALM FOR COVID SWAB. SECURITY CALLED TO REMOVE REMAINING RESTRAINTS. SOAKER HIDES BILL NOTIFIED.
--- NOTE | 2019-12-08 16:51 | NUR ---
RESTRAINTS REMOVED. PT AMBULATED TO THE BR W/ A STEADY GAIT.
--- NOTE | 2019-12-08 16:56 | NUR ---
PT AGITATED AND PACING AROUND ROOM. PT STATES "YOU HAVE SOMETHING FOR ME TO SIGN AND IF YOU DONT PRODUCE SOMETHING FOR ME TO SIGN YOURE GOING TO BE KNOWN A STUPID HOMELESS WHITE BITCH". PT KEEPS OPENING DOOR, INSULTING STAFF AND SLAMMING THE DOOR SHUT. THREW GOWN OUTSIDE ROOM.
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
--- NOTE | 2019-12-08 17:21 | NUR ---
RECEIVED JERILYN FROM PHARMACY. ASKED IF PT WOULD TAKE IT. PT STATES HE WOULD ONLY TAKE IT W/ DINNER. INFORMED PT WE DO NOT FEEL SAFE ENOUGH TO REMOVE RESTRAINTS TO ALLOW PT TO EAT SINCE HE IS MAKING THREATS TOWARDS STAFF AT THIS TIME. PT STATES "YOU MAYRA BITCH, GET OUT OF MY ROOM, YOU MAYRA BITCH".
--- NOTE | 2019-12-08 18:05 | NUR ---
PT SPIT ON RIKY AMIN. RIKY AMIN CALLED SECURITY TO HAVE PT RESTRAINTS READJUSTED SO HE CAN'T PULL SPIT LOPEZ OFF. SECURITY STATES THAT NO MATTER WHAT POSITION HE IS IN HE WILL PULL THE SPIT LOPEZ OFF. PT RESTRAINTS NOT READJUSTED.
--- NOTE | 2019-12-08 18:35 | NUR ---
PT RESTING ON GURNEY IN 4 POINT RESTRAINTS, RESP EVEN AND UNLABORED, NADN. SITTER OUTSIDE ROOM, GARAGE DOORS DOWN. WILL CONTINUE TO MONITOR.
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
[2019-12-08] MEDS ORDERED: LORazepam 2 MG/ML, 1ML ONE (19:36)
--- NOTE | 2019-12-08 19:47 | NUR ---
PT SCREAMING AT STAFF AND THREATENING TO HARM SATFF. PT MEDICATED PER MAR. WILL CONTINUE TO MONITOR.
[2019-12-08] MEDS ORDERED: LORazepam 2 MG/ML, 1ML IM ONE (20:00)
[2019-12-08] MEDS ORDERED: DIPHENHYDRAMINE 50 MG/ML, 1ML IM ONE (20:00)
--- NOTE | 2019-12-08 20:57 | NUR ---
pt appears calmer but is very aggitated when aroused. pt called this rn "a lying pig bitch". pt refusing night medication and vital signs. sitter in view of pt.
[2019-12-08] MEDS: DIVALPROEX 500 MG TAB.ER.24H PO SCH (21:00)
--- NOTE | 2019-12-08 22:03 | NUR ---
Pt provided with food, security called to remove left arm restraint. Sitter in direct line of vision.
--- NOTE | 2019-12-08 23:39 | NUR ---
Vital signs taken, pt having flight of ideas at this time. Pt asked if he could "fly coastal this time" Sitter in direct line of sight. Pt resting on right side, left arm still unrestrained. Informed patient if he continued to act correctly, we would attempt to remove another restraint. Pt agreed with plan of care.
--- NOTE | 2019-12-09 01:18 | NUR ---
Pt given crackers and orange juice, per request. Pt attempting to argue with RN and does not respond to redirection. Sitter in direct line of sight.
--- NOTE | 2019-12-09 01:35 | NUR ---
Pt called nurse into room. Pt stated "all you bitches are the same. You think everyone should be treated the same when they come to the hospital. I pay good money for my insurance i should get what ever I want!" When attempts to redirect failed, I turned to walk out of the room. Pt threw orange juice at nurse and yelled "fuck off bitch!" Security called, pt placed back in 4 point restraints.
--- NOTE | 2019-12-09 02:59 | NUR ---
Continuation of restraints documentation signed by MD Alfonso.
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
--- NOTE | 2019-12-09 05:45 | NUR ---
Pt attempted to void on floor, nurse caught patient and placed bedpan under patient. After pt was finished, he threw bedpan on floor and smeared contents on bed. Security called to assist in medicating patient and readjusting restraints. Pt arms switched to left arm up and right arm by side. Pt refusing to answer RN questions at this time but was cooperative with security.
[2019-12-09] MEDS ORDERED: DIPHENHYDRAMINE 50 MG/ML, 1ML ONE (05:47)
--- NOTE | 2019-12-09 07:44 | NUR ---
REPORT RECIEVED FROM NOC RN, PT RESTING ON GURNEY AT THIS TIME, REMAINS IN 4PT RESTRAINTS, DISCUSSED CARE WITH PT. PT AGREEABLE TO NOT THROW THINGS AND SPIT AT THIS RN THESE BEHAVIORS HAVE BEEN DONE WITH PREVIOUS STAFF. PT STATES WHEN HE CAN EAT HE WILL NOT ACT WITH HOSTILE BEHAVIOR TO STAFF. AWAITING BFAST TRAY AT THIS TIME, PLAN TO DC UPPER ARM RESTRAINTS FOR MEAL
--- NOTE | 2019-12-09 08:33 | NUR ---
SECURITY CALLED TO RELEASE ONE UPPER RESTRAINT SO PT MAY EAT BREAKFAST TRAY AND USE URINAL
--- NOTE | 2019-12-09 09:15 | NUR ---
REPORT RECEIVED FROM BRENNAN HIDALGO, PT HAS CONSUMED BREAKFAST. RESTRAINTS IN PLACE TO RT ARM, AND BILATERAL ANKLES. SITTER MONITORING FROM [facility] FOR SAFETY. ROOM SECURE. PT LAYING ON GURNEY, AWAKE AND ALERT. RESPS EVEN AND UNLABORED.
--- NOTE | 2019-12-09 09:18 | NUR ---
REPORT GIVEN TO NBA AMIN
[2019-12-09] MEDS ORDERED: DIVALPROEX 500 MG TAB.ER.24H ONE ×2 (10:03→20:29)
[2019-12-09] MEDS: LURASIDONE 20 MG TABLET PO SCH ×2 (10:04→10:15)
[2019-12-09] MEDS: DIVALPROEX 500 MG TAB.ER.24H PO SCH ×3 (10:04→20:45)
--- NOTE | 2019-12-09 10:30 | NUR ---
late entry for 1030: pt agreed to taking am meds; took am meds, see emar. pt awake, alert, cooperative. 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 pt stating that he needs to leave today, remains a flight risk. pt educated regarding restraint removal criteria: pt must demonstrate he will not harm staff or self, and remain in room as he is on a legal hold. pt does not demonstrate understanding/agreement of these criteria at this time. 3+ pulses to bilateral radial/dorsalis regions. cms intact throughout. pt consumed all of breakfast, pt given snack and juice. pt denies any pain at this time. pt denies any needs at this time. pt a&o, resps even and unlabored. speaking in full sentences without difficulty. sitter monitoring from hallway for safety. extra sheets and empty meal tray removed from room. room secure. safety checks in place per restraint policy.
--- NOTE | 2019-12-09 11:00 | NUR ---
LATE ENTRY FOR 1100 D/T PATIENT CARE : RESTRAINT RENEWAL ORDER SIGNED BY MD MAGANA. PT UNWILLING TO AGREE TO RESTRAINT REMOVAL CRITERIA, PT MAKING STATEMENTS ALLUDING TO THE FACT HE MAY TRY TO [facility]. PT REMAINS FLIGHT RISK.
--- NOTE | 2019-12-09 11:00 | NUR ---
Psyc EUNICE Arenas at bedside to round on patient. report given to EUNICE Arenas regarding pt's progress in last few hrs. pt agreed to take PO meds but continues to expose himself and masturbate despite staff requests to cease. Pt is a flight risk, making comments such as "I don't need to be here, I need to leave today." sitter monitoring from hallway for safety, room remains secure.
--- NOTE | 2019-12-09 11:46 | NUR ---
pt sitting on gurney, a&o, resps even and unlabored. sitter monitoring from [address] for safety. pt continuing to expose himself and masturbate despite requests from staff to cease. jos at this time.
--- NOTE | 2019-12-09 13:41 | NUR ---
VS REASSESSED, BILATERAL RADIAL PULSES AND DORSALIS PULSES 3+. RESPS EVEN AND UNLABORED. PT A&O, CALM AND COOPERATIVE. PT GIVEN SI MEAL TRAY, MILK AND ORANGE JUICE IN STYROFOAM CUPS. RESTRAINT REMOVAL CRITERIA DISCUSSED WITH PT. PT DEMONSTRATES AGREEMENT WITH REMOVAL CRITERIA, STATING HE WILL NOT ATTEMPT TO HARM SELF OR STAFF. SECURITY CALLED, HORACE AT BESIDE X 2. LEATHER RESTRAINT REMOVED FROM RT WRIST AND PLACED TO LEFT WRIST. LEFT ANKLE RESTRAINT REMOVED. LEATHER RESTRAINTS REMAINT TO LEFT WRIST AND RIGHT ANKLE. PT EDUCATED ALL RESTRAINTS WILL BE REMOVED IF HE CONTINUES TO COOPERATE. PT DENIES PAIN. ROOM REMAINS SECURE. SITTER MONITORING FROM REPLACED BY [facility] FOR SAFETY.
--- NOTE | 2019-12-09 13:45 | NUR ---
REPORT FROM BRENNAN ARANGO. ASSUMING CARE AT THIS TIME.
--- NOTE | 2019-12-09 14:20 | NUR ---
PT LYING ON GURNEY IN RESTRAINTS X2. NO NEEDS EXPRESSED. PT IN SECURED ROOM WITH SITTER AT DOORWAY.
--- NOTE | 2019-12-09 15:00 | NUR ---
LATE ENTRY FOR 1500: RESTRAINT RENEWAL FORM SIGNED BY MD HARPER. PT REMAINS IN 2 PT RESTRAINTS, EDUCATED REGARDING REMOVAL CRITERIA. PT BECOMING MORE COOPERATIVE.
--- NOTE | 2019-12-09 16:05 | NUR ---
BREAK RN: SNACK PROVIDED (2MILKS, OJ, AND CRACKERS) MEAL TRAY ORDERED.
--- NOTE | 2019-12-09 17:05 | NUR ---
pt resting in secured room, cooperative and calm at this time. meal tray provided. pt understand requirements for removing restraints and is agreeable to all conditions (no harm to staff or self, no spitting, must stay in room unless rn is notified prior to leaving, etc...). security notified and will take restraints off. sitter remains at doorway.
--- NOTE | 2019-12-09 17:11 | NUR ---
restraints removed. pt calm and cooperative. extra drinks provided. pt thankful. room secured adn sitter remains at doorway.
--- NOTE | 2019-12-09 18:32 | NUR ---
pt cooperative at this time. pt singing and talking to self in secured room. no needs expressed. sitter remains at doorway.
--- NOTE | 2019-12-09 18:49 | NUR ---
report to reji cruz to assume care at this time.
--- NOTE | 2019-12-09 19:01 | NUR ---
Report received from BRENNAN Casiano. This RN to assume care. Patient up to bathroom then talking on the phone. Patient acting pleasant toward staff.
--- NOTE | 2019-12-09 19:15 | NUR ---
Patient off the phone and walking back to room. Asking for a phonebook to call a superintendent plant because he "isn't supposed to be here." Patient states, "I have a and kids I have to get back to. I am being held here against my will. I shouldn't be here. I was released from [facility] and came here willingly and I don't want to be here anymore." Patient requesting drinks.
--- NOTE | 2019-12-09 19:53 | NUR ---
Patient requesting to speak to a doctor so "I can get out of here."
--- NOTE | 2019-12-09 20:07 | NUR ---
Patient out of restraint x3 hours with no incidents.
--- NOTE | 2019-12-09 20:16 | NUR ---
Patient constantly up in the hallway for phone use. Advised patient there will be no more phone use for the night. Patient asked to return to room. Patient cooperating at this time but making statements such as, "this could be my hospital."
--- NOTE | 2019-12-09 20:41 | NUR ---
PT AMBULATORY TO RN DESK. STATES "I NEED TO SPEAK TO THE ON-CALL PSYCHIATRIST. 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 I HAVEN'T SEEN A DOCTOR SINCE I GOT HERE." INFORMED PT THAT I WOULD LET HIS PRIMARY NURSE KNOW.
--- NOTE | 2019-12-09 20:53 | NUR ---
Patient requested to be seen by a psychiatrist as he hasn't been seen by one since he's been here, according to patient. Patient, however, was seen by EUNICE Arenas from [facility]. Patient requesting 12 pieces of paper and a pencil to write to his teacher vocal.
--- NOTE | 2019-12-09 21:07 | NUR ---
Offered a single piece of paper and a crayon to patient; he refused. Patient standing at door with door open. Patient refusing to go in room with the door shut. He states "I have a right to stand here and you can't take my rights away from me. My mom just and I don't want to be by myself in a room with the door shut. Can you understand that? Do you have a heart to understand that?" Advised patient that security would be called if he cannot cooperate. Patient states, "Good. Call security. I need to take some aggression out."
--- NOTE | 2019-12-09 21:50 | NUR ---
Patient pacing the room with door open talking and singing to himself.
--- NOTE | 2019-12-09 22:35 | NUR ---
Patient offered meds to help him sleep; patient denied the need stating, "I don't like drugs."
--- NOTE | 2019-12-09 23:08 | NUR ---
Patient pacing the room talking to himself. Sitter outside, room secured, belongings locked in cabinet.
--- NOTE | 2019-12-09 23:21 | NUR ---
Patient up to bathroom.
--- NOTE | 2019-12-09 23:37 | NUR ---
CIRCULAR SHEAR OPERATOR: PT WALKING PAST NURSES STATION STATING HES MAKING A PHONE CALL. PT WAS ASKED TO RETURN TO HIS ROOM. PT STATES "NO WHITE MAGGOT IS GONNA TELL ME WHAT TO DO, BITCH". SECURITY CALLED TO HELP ASSIST PT BACK TO ROOM.
--- NOTE | 2019-12-09 23:59 | NUR ---
Provided patient with snacks and drinks. Patient is cooperative with this RN.
--- NOTE | 2019-12-10 01:19 | NUR ---
Patient standing at the door. Remains calm and cooperative at this time. Sitter outside, room secured, belongings locked in cabinet.
--- NOTE | 2019-12-10 02:20 | NUR ---
Patient standing at door talking and laughing to himself. Patient remains calm and cooperative. Sitter outside, room secured, belongings in locked cabinet.
--- NOTE | 2019-12-10 03:00 | NUR ---
Patient standing at door talking and singing to himself. Patient remains calm and cooperative. Sitter outside, room secured, belongings in locked cabinet.
--- NOTE | 2019-12-10 04:11 | NUR ---
Patient standing at door talking and singing to himself. Offered patient sleep aid; patient denied the need "because my mom and I want to sit in my misery." Patient refuses to keep door closed. Sitter outside, room secured, belongings in locked cabinet.
--- NOTE | 2019-12-10 04:48 | NUR ---
Patient laying face down on the bed with his feet in the air talking to himself. Sitter outside, room secure, belongings with patient.
--- NOTE | 2019-12-10 05:27 | NUR ---
Patient requesting to see a psychiatrist and asking when one will be here. Advised patient he will not see a psychiatrist this morning and that one cannot be contacted during night clerk auditor hours. Patient does not want to see WATER TAXI FERRY OPERATOR.
--- NOTE | 2019-12-10 05:51 | NUR ---
Patient continuously coming out of room and walking down the zaman. Patient upset at other staff walking by disinfecting the area. Patient asked to return to his room; patient not cooperative with any male staff. Security called to inform patient that he needs to stay in his room. Patient states he will cooperate with all staff. Requesting sprite.
--- NOTE | 2019-12-10 06:15 | NUR ---
Patient in room with door shut walking around naked. Sitter outside, room secure, belongings locked in cabinet.
--- NOTE | 2019-12-10 06:37 | NUR ---
Patient standing at door talking to himself. Patient advised of oncoming shift. Meal tray and morning meds ordered. Sitter outside, room secured, belongings locked in cabinet.
--- NOTE | 2019-12-10 06:50 | NUR ---
Report to BRENNAN Chisholm.
--- NOTE | 2019-12-10 07:02 | NUR ---
REPORT RECEIVED FROM OEMR AMIN. PT STANDING IN DOOR WAY SPEAKING W/ SITADLEE.
[2019-12-10 07:23] VITALS: BP 135/96
--- NOTE | 2019-12-10 07:30 | NUR ---
PT INFORMED HE MUST KEEP DOOR TO ROOM SHUT, PT AGITATED AND AGGRESSIVE.
[2019-12-10] MEDS ORDERED: DIVALPROEX 500 MG TAB.ER.24H ONE (07:37)
[2019-12-10] MEDS: LURASIDONE 20 MG TABLET PO SCH (07:41)
[2019-12-10] MEDS: DIVALPROEX 500 MG TAB.ER.24H PO SCH (07:41)
--- NOTE | 2019-12-10 07:41 | NUR ---
PT MEDICATED PER EMAR.
--- NOTE | 2019-12-10 08:00 | NUR ---
BREAKFAST TRAY GIVEN TO PT. PT STANDING IN ROOM MASTUREBATING.
--- NOTE | 2019-12-10 09:03 | NUR ---
PT REQUESTED TO USE PHONE. INFORMED PT SINCE HE HAS BEEN COOPERATIVE FOR THE PAST HOUR HE MAY MAKE 1, 5 MINUTE PHONE CALL. PT ASKED FOR 10 MINUTES AND THEN 7 MINUTES. INFORMED PT HE MAY ONLY HAVE 5 MINUTES BECAUSE WE CAN NOT HAVE PTS STANDING IN THE JIM[place] AND THAT HE MUST RETURN TO ROOM AFTER, PT AGREED. STARTED PT TIME AT 0906.
--- NOTE | 2019-12-10 09:14 | NUR ---
PT STATESD ON PHONE "I GET TO LEAVE TODAY, I'M GOING TO GO [facility]".
--- NOTE | 2019-12-10 09:15 | NUR ---
PT REQUESTING TO SPEAK TO "A REAL PSYCHIATRIST, SOMEONE WHO WENT TO MED SCHOOL LIKE ME, 11 YEARS". PT INFORMED WE HAVE TO TECHNICAL MAINTENANCE SPECIALIST'S THAT COME IN AND THAT THEY WILL BE HERE AROUND 10-11 AND WE CAN ADDRESS HIM LEAVING THEN.
--- NOTE | 2019-12-10 09:30 | NUR ---
PT CAME OUTSIDE OF ROOM AND SHUT DOOR. STATES HE WILL NOT GOING BACK IN ROOM. PT STATES HE WANTS TO LEAVE, TOLD THIS RN TO CALL SECURITY TO COME RESTRAIN HIM, STATES HE WILL GO BACK IN ROOM WHEN SECURITY COMES. SECURITY CALLED. PT WENT BACK IN ROOM, SWINGING ARMS IN AIR IF PUNCHING SOMEONE. THIS RN ASKED PT TO SIT ON [facility]. PT COMPLIED, THIS RN ASKED SECURITY TO LEAVE TO SEE IF WE CAN DEESCALATE THE SITUATION. PT NOW SITTING ON GURPATERSON. SITTER OUTSIDE ROOM. GARAGE DOORS DOWN.
--- NOTE | 2019-12-10 09:48 | NUR ---
PT SINING AND DANCING LOUDLY PACING AROUND ROOM AND LOOKING OUT OF DOOR WINDOW.
[2019-12-10] MEDS ORDERED: HALOPERIDOL 5 MG/ML ONE (10:08)
--- NOTE | 2019-12-10 10:17 | NUR ---
PT WALKED OUT OF ROOM STATING HE HAD TO USE THE BATHROOM, PT ASKED TO RETURN TO ROOM AND INFORMED I WOULD PROVIDE HIM A URINAL. WAS VERBALLY AGGRESSIVE TO STAFF. RETURNED TO ROOM AND PROVIDED URINAL. SECURITY ON STANDBY FOR RESTRAINTS. PT AGREED TO TAKE IM SHOT OF HALDOL. PT MEDICATED PER EMAR W/O DIFFICULTY. SAID SINCE HE AGREED TO TAKE IT WILLINGLY WE WOULD START WITH 5MG AND CAN GIVE ANOTHER IF HE CONTINUES TO BE AGRESSIVE. PT NOW RESTING ON [facility] ROOM, GARAGE DOORS DOWN.
[2019-12-10] MEDS ORDERED: HALOPERIDOL 5 MG/ML IM ONE (10:30)
--- NOTE | 2019-12-10 10:43 | NUR ---
PT RESTING ON GURNEY, SITTER OUTSIDE ROOM, GARAGE DOORS DOWN, NO EPISODES OF AGITATION SINCE MEDICATED.
--- NOTE | 2019-12-10 12:34 | NUR ---
PT PROVIDED LUNCH TRAY.
--- NOTE | 2019-12-10 12:51 | NUR ---
PT GIVEN 1 BELONGINGS BAG, INSTRUCTED TO CHANGE TO PREPARE FOR DC.
--- NOTE | 2019-12-10 13:13 | NUR ---
Patient given discharge instructions and they have confirmed that they understand the instructions. Patient ambulatory with steady gait.
== END 2019-12-10 13:14 | disposition home or self-care (01) ==
LOC: EDBD → MERGE 15:43 → ED 15:43
DX: R50.9 Fever, unspecified (principal); Z20.828 Contact with and (suspected) exposure to other viral communicable diseases; F22 Delusional disorders; F23 Brief psychotic disorder; F17.200 Nicotine dependence, unspecified, uncomplicated
CPT/HCPCS: 36415; 71045; 80053; 80164; 80307; 85025; 93005; 96372; 99285; J1200; J1630; J2060; J2250; J3486; U0001

== ENCOUNTER 2019-12-14 14:27 | Emergency (ER) | payer MEDICARE ==
[~2019-12-14] VITALS: Ht 188 cm; Wt 90.0 kg
[~2019-12-14 14:27] MED LIST changes: +DIVA500T4 PO
[2019-12-14 14:34] VITALS: BP 158/88
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
--- NOTE | 2019-12-14 15:11 | NUR ---
edmd/rn signed on restraint order at this time. it is in chart.
--- NOTE | 2019-12-14 15:50 | NUR ---
requesting sitter at this time.
--- NOTE | 2019-12-14 15:59 | NUR ---
advisory internship at bedside. pt refused to talk to advisory internship at this time.
--- NOTE | 2019-12-14 16:23 | NUR ---
sitter monitoring pt from [facility] for safety at this time.
--- NOTE | 2019-12-14 16:34 | NUR ---
4 points retraints removed per edmd verbal order. snacks/juice provided at this time. belonging bag in room. awaiting dc.
--- NOTE | 2019-12-14 16:54 | NUR ---
Patient given discharge instructions and they have confirmed that they understand the instructions. Patient ambulatory with steady gait.
== END 2019-12-14 16:55 | disposition home or self-care (01) ==
LOC: ED 15:38
DX: F22 Delusional disorders (principal); F20.9 Schizophrenia, unspecified; F32.9 Major depressive disorder, single episode, unspecified
CPT/HCPCS: 99285

== ENCOUNTER 2020-07-02 11:07 | Emergency (ER) | payer BC, MEDICARE ==
[~2020-07-02] VITALS: Ht 188 cm; Wt 88.0 kg
[2020-07-02 11:21] VITALS: BP 126/89
--- NOTE | 2020-07-02 11:42 | NUR ---
PT HERE FOR INJURY AND WOUND CARE TO RIGHT FOOT/TOES. PRIOR PArtial TOE AMPUTATION, CURRENTLY MULTIPLE WOUNDS TO TOES. PT ABLE TO AMBULATE STEADY TO ROOM. PT ALSO REQUESTING PSYCH EVAL. NO SI/SA.
--- NOTE | 2020-07-02 11:48 | NUR ---
REPORT RECEIVED FROM BRENNAN RUBI FOR TRANSFER OF PATIENT CARE.
--- NOTE | 2020-07-02 11:54 | NUR ---
PATIENT AMBULATED TO BATHROOM WITH STEADY GAIT, URINE CUP GIVEN FOR SAMPLE.
--- NOTE | 2020-07-02 12:13 | NUR ---
URINE SAMPLE COLLECTED AND SENT TO LAB.
--- NOTE | 2020-07-02 12:28 | NUR ---
PATIENT TO IMAGING.
[2020-07-02 12:38] LABS: AMPHETAMINE SCREEN, URINE Negative (Negative); BARBITURATE SCREEN, URINE Negative (Negative); BENZODIAZEPINE SCREEN, URINE Negative (Negative); CANNABINOID SCREEN, URINE Negative (Negative); COCAINE SCREEN, URINE Negative (Negative); METHADONE SCREEN, URINE Negative (Negative); OPIATE SCREEN, URINE Negative (Negative)
[2020-07-02 12:48] LABS: BASOPHILS % (AUTO) 0 % (0-1); EOSINOPHILS % (AUTO) 0 % (1-7); LYMPHOCYTES % (AUTO) 23 % (22-44); MEAN CORPUSCULAR HEMOGLOBIN 31.1 pg (27.5-34.5); MEAN PLATELET VOLUME 8.4 fL (7.4-10.4); MONOCYTES % (AUTO) 4 % (2-9); NEUTROPHILS % (AUTO) 72 % (42-75); PLATELET COUNT 271 x10^3/uL (130-400); RED BLOOD COUNT 5.14 x10^6/uL (4.38-5.82); RED CELL DISTRIBUTION WIDTH 13.7 % (9.4-14.8)
[2020-07-02 12:49] LABS: MD NO
--- NOTE | 2020-07-02 12:49 | NUR ---
EUNICE SANDY AT BEDSIDE FOR PSYCH EVALUATION.
[2020-07-02 12:56] LABS: ALBUMIN 4.4 g/dL (3.4-5.0); ANION GAP 4 mmol/L (5-15); CALCIUM 9.8 mg/dL (8.5-10.1); CHLORIDE 112 mmol/L (98-107)
[2020-07-02 13:00] LABS: ALANINE AMINOTRANSFERASE 39 U/L (12-78); ALKALINE PHOSPHATASE 65 U/L (45-117); BILIRUBIN,TOTAL 0.3 mg/dL (0.2-1.0); CREATININE 1.58 mg/dL (0.7-1.3); TOTAL PROTEIN 8.7 g/dL (6.4-8.2)
[2020-07-02 13:01] LABS: SALICYLATE LEVEL < 1.7 mg/dL (2.8-20.0)
--- NOTE | 2020-07-02 13:26 | NUR ---
SPOKE WITH BRENNAN SANDY ABOUT POC. WAITING TO HEAR IF [facility] HAS A MALE BED FOR PATIENT.
--- NOTE | 2020-07-02 13:38 | NUR ---
PATIENT SITTING IN GURNEY WITH EYES OPEN, NADN, SUICIDE PRECAUTIONS IN PLACE.
--- NOTE | 2020-07-02 14:21 | NUR ---
PATIENT SITTING IN MORENA OWENS, SUICIDE PRECAUTIONS IN PLACE, WILL CONTINUE TO MONITOR.
--- NOTE | 2020-07-02 14:57 | NUR ---
FOOD TRAY ORDERED.
--- NOTE | 2020-07-02 15:18 | NUR ---
L[facility] CALLED FOR NOCTURNIST PHYSICIAN.
--- NOTE | 2020-07-02 15:25 | NUR ---
Patient given discharge instructions and prescription and they have confirmed that they understand the instructions. Taxi voucher provided to [facility] to [facility]. All patient belongings gathered and taken with patient. Patient stable and ambulatory with steady gait from ED.
== END 2020-07-02 15:26 | disposition home or self-care (01) ==
LOC: ED 13:15
DX: S70.01XA Contusion of right hip, initial encounter (principal); S90.111A Contusion of right great toe without damage to nail, initial encounter; F32.9 Major depressive disorder, single episode, unspecified; X58.XXXA Exposure to other specified factors, initial encounter; Y93.89 Activity, other specified; Y92.89 Other specified places as the place of occurrence of the external cause; Y99.8 Other external cause status
CPT/HCPCS: 36415; 80053; 80299; 80307; 80320; 80329; 85025; 99284; G0480

== ENCOUNTER 2020-07-03 05:12 | Emergency (ER) | payer BC ==
[~2020-07-03] VITALS: Ht 188 cm; Wt 88.4 kg
--- NOTE | 2020-07-03 05:35 | NUR ---
PT AMBULATED BACK TO ROOM. AT BEDSIDE
[2020-07-03 06:05] VITALS: BP 142/98
[2020-07-03 06:14] LABS: BASOPHILS % (AUTO) 0 % (0-1); EOSINOPHILS % (AUTO) 0 % (1-7); LYMPHOCYTES % (AUTO) 17 % (22-44); MEAN CORPUSCULAR HEMOGLOBIN 31.8 pg (27.5-34.5); MEAN CORPUSCULAR HGB CONC 34.8 g/dL (33.2-36.2); MEAN PLATELET VOLUME 8.5 fL (7.4-10.4); MONOCYTES % (AUTO) 4 % (2-9); NEUTROPHILS % (AUTO) 79 % (42-75); PLATELET COUNT 271 x10^3/uL (130-400); RED BLOOD COUNT 5.05 x10^6/uL (4.38-5.82); RED CELL DISTRIBUTION WIDTH 14.2 % (9.4-14.8)
--- NOTE | 2020-07-03 06:15 | NUR ---
RN WENT TO ROOM TO REQUEST UA. PT SYAS HE NEEDS TO LEAVE TO TAKE CARE OF HIS SON. NOTIFIED OF THIS AND IS IN ROOM SPEAKING TO PT.
[2020-07-03 06:17] LABS: MD NO
--- NOTE | 2020-07-03 06:25 | NUR ---
PT SPOKE TO MD WHO ENCOURAGED HIM TO STAY. PT WAS ADAMANT AND LEFT PRIOR TO RECIEVING DISCHARGE PAPERS.
[2020-07-03 06:27] LABS: ALBUMIN 4.4 g/dL (3.4-5.0); ANION GAP 8 mmol/L (5-15); CALCIUM 9.7 mg/dL (8.5-10.1); CHLORIDE 108 mmol/L (98-107); CREATININE 1.41 mg/dL (0.7-1.3)
[2020-07-03 06:29] LABS: SALICYLATE LEVEL < 1.7 mg/dL (2.8-20.0)
[2020-07-03] MEDS ORDERED: DIVALPROEX 500 MG TAB.ER.24H PO SCH (09:00)
[2020-07-03] MEDS ORDERED: LURASIDONE 20 MG TABLET PO SCH (09:00)
== END 2020-07-03 06:28 | disposition home or self-care (01) ==
LOC: ED 05:48
DX: F31.2 Bipolar disorder, current episode manic severe with psychotic features (principal)
CPT/HCPCS: 36415; 80048; 80299; 80320; 80329; 82040; 85025; 99283; 99284; G0480

== ENCOUNTER 2020-07-08 00:14 | Emergency (ER) | payer BC ==
[~2020-07-08] VITALS: Ht 188 cm; Wt 85.9 kg
[2020-07-08 00:29] VITALS: BP 127/87
--- NOTE | 2020-07-08 01:50 | NUR ---
reporting developer: pt from lobby to room 4
[2020-07-08] MEDS ORDERED: KETOROLAC 30 MG/1 ML IM ONE (02:30)
[2020-07-08] MEDS ORDERED: KETOROLAC 30 MG/1 ML ONE (02:32)
--- NOTE | 2020-07-08 02:36 | NUR ---
pt a&ox4. calm and cooperative. c/o pain to right inner thigh. ice pack provided per MD orders, and IM med given per MD order, to right deltoid. pt tolerated well, no distress.
--- NOTE | 2020-07-08 03:01 | NUR ---
dc instructions given and pt verbalized understanding. ambulating and d/c'd without incident.
== END 2020-07-08 03:04 | disposition home or self-care (01) ==
LOC: ED 02:34
DX: S76.211A Strain of adductor muscle, fascia and tendon of right thigh, initial encounter (principal); F10.10 Alcohol abuse, uncomplicated; F17.210 Nicotine dependence, cigarettes, uncomplicated; Z72.9 Problem related to lifestyle, unspecified; X58.XXXA Exposure to other specified factors, initial encounter; Y93.02 Activity, running; Y92.488 Other paved roadways as the place of occurrence of the external cause; Y99.8 Other external cause status; Y90.9 Presence of alcohol in blood, level not specified
CPT/HCPCS: 96372; 99283; J1885

== ENCOUNTER 2020-07-08 17:56 | Emergency (ER) | payer BC ==
[~2020-07-08] VITALS: Ht 188 cm; Wt 89.1 kg
--- NOTE | 2020-07-08 19:41 | NUR ---
PT TO RM FROM LOBBY.
[2020-07-08] MEDS ORDERED: IBUPROFEN 800 MG TABLET PO STA (20:33)
[2020-07-08] MEDS ORDERED: IBUPROFEN 800 MG TABLET ONE (20:49)
[2020-07-08 20:54] VITALS: BP 152/98
== END 2020-07-08 20:57 | disposition home or self-care (01) ==
LOC: ED 20:30
DX: M25.551 Pain in right hip (principal); F17.210 Nicotine dependence, cigarettes, uncomplicated
CPT/HCPCS: 99283; 99406

== ENCOUNTER 2020-07-12 14:07 | Emergency (ER) | payer BC ==
[~2020-07-12] VITALS: Ht 195.6 cm; Wt 92.3 kg
[2020-07-12 14:24] VITALS: BP 156/88
[2020-07-12 15:33] LABS: MICROSCOPIC NOT IND
== END 2020-07-12 16:34 | disposition home or self-care (01) ==
LOC: ED 14:37
DX: S39.012A Strain of muscle, fascia and tendon of lower back, initial encounter (principal); M47.816 Spondylosis without myelopathy or radiculopathy, lumbar region; N50.812 Left testicular pain; N50.811 Right testicular pain; X58.XXXA Exposure to other specified factors, initial encounter; Y93.89 Activity, other specified; Y92.89 Other specified places as the place of occurrence of the external cause; Y99.8 Other external cause status
CPT/HCPCS: 72110; 81003; 99284

== ENCOUNTER 2020-08-18 00:27 | Emergency (ER) | payer SELFPAY ==
[~2020-08-18] VITALS: Ht 188 cm; Wt 87.0 kg
[2020-08-18 01:13] LABS: BASOPHILS % (AUTO) 1 % (0-1); EOSINOPHILS % (AUTO) 0 % (1-7); LYMPHOCYTES % (AUTO) 21 % (22-44); MEAN CORPUSCULAR HEMOGLOBIN 31.5 pg (27.5-34.5); MEAN PLATELET VOLUME 8.2 fL (7.4-10.4); MONOCYTES % (AUTO) 7 % (2-9); NEUTROPHILS % (AUTO) 71 % (42-75); PLATELET COUNT 218 x10^3/uL (130-400); RED BLOOD COUNT 4.94 x10^6/uL (4.38-5.82); RED CELL DISTRIBUTION WIDTH 13.7 % (9.4-14.8)
[2020-08-18 01:14] LABS: MD NO
[2020-08-18 01:24] LABS: ALANINE AMINOTRANSFERASE 38 U/L (12-78); ALBUMIN 4.2 g/dL (3.4-5.0); ANION GAP 5 mmol/L (5-15); CALCIUM 9.3 mg/dL (8.5-10.1); CHLORIDE 108 mmol/L (98-107); CREATININE 1.34 mg/dL (0.7-1.3)
[2020-08-18 01:26] LABS: ALKALINE PHOSPHATASE 64 U/L (45-117); BILIRUBIN,TOTAL 0.5 mg/dL (0.2-1.0); SALICYLATE LEVEL < 1.7 mg/dL (2.8-20.0); TOTAL PROTEIN 8.5 g/dL (6.4-8.2)
--- NOTE | 2020-08-18 01:59 | NUR ---
PT CALM IN BED, SACK LUNCH PROVIDED, PT ALERT WITH DELLUSION THOUGHTS. PT FREE OF HARM. WILL MONITOR.
[2020-08-18 02:55] LABS: AMPHETAMINE SCREEN, URINE Negative (Negative); BARBITURATE SCREEN, URINE Negative (Negative); BENZODIAZEPINE SCREEN, URINE Negative (Negative); CANNABINOID SCREEN, URINE Negative (Negative); COCAINE SCREEN, URINE Negative (Negative); METHADONE SCREEN, URINE Negative (Negative); OPIATE SCREEN, URINE Negative (Negative)
--- NOTE | 2020-08-18 03:36 | NUR ---
Packet faxed to Sorin LIZAMA, JESSEH, [facility], [facility].
--- NOTE | 2020-08-18 03:48 | NUR ---
Pt now on L2k per telepsych. All belongins in safety storage, garage doors down. Informed CN for request for sitter.
--- NOTE | 2020-08-18 03:59 | NUR ---
Sitter outside room.
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
--- NOTE | 2020-08-18 04:39 | NUR ---
Pt calm, cooperative, eating snacks and resting. Sitter in line of site.
--- NOTE | 2020-08-18 04:45 | NUR ---
Pt denies any SI/HI, he states that he wants admission to psych facility so that he can get his medications stabilized. L2K placed by telepsych.
--- NOTE | 2020-08-18 05:13 | NUR ---
PT CALM IN BED. SITTER AT BEDSIDE. PT FREE OF HARM. PT DENIES NEEDS AT THIS TIME. WILL MONITOR.
--- NOTE | 2020-08-18 06:20 | NUR ---
Meal tray ordered.
--- NOTE | 2020-08-18 06:39 | NUR ---
Patient at doorway talking to sitter. Patient calm and cooperative. Room secured, belongings locked in cabinet.
--- NOTE | 2020-08-18 07:00 | NUR ---
REPORT RECEIVED FROM RN'S INGRIS. PT IS IN GOOD SPIRITS, SPEAKING WITH SITTER WHO IS MONITORING FROM DOORWAY. PT A&O, RESPS EVEN AND UNLABORED. CARE ASSUMED BY THIS RN AT THIS TIME.
[2020-08-18] MEDS ORDERED: ZYPREXA PO (08:43)
[2020-08-18] MEDS ORDERED: CLON-364 PO (08:43)
[2020-08-18] MEDS ORDERED: DEPAKOTE PO (08:43)
--- NOTE | 2020-08-18 08:44 | NUR ---
PT PROVIDED WITH SI MEAL TRAY FOR BREAKFAST, CONSUMED 90% WITHOUT DIFFICULTY. PT DENIES SI/HI. PT DENIES PAIN. PT IS A&OX4, RESPS EVEN AND UNLABORED. NEURO INTACT. PT DENIES GI/ COMPLAINTS. TOLERATING PO'S WELL. PT HAS NO COMPLAINT. MED REC COMPLETED, PT STATES HE CAME TO ED IN HOPES TO BE TAKEN OFF OF ZYPREXA IT IS CAUSING AUDITORY AND VISUAL DISTURBANCES, PT SEEKING LATUDA RX. PT DENIES AUDITORY/VISUAL DISTURBANCES AT THIS TIME. ROOM SECURE. SITTER MONITORING FROM [facility] FOR SAFETY. ROOM SECURE. HOSPITAL BED REQUESTED FROM HOUSEKEEPING.
--- NOTE | 2020-08-18 09:00 | NUR ---
PT MEETING SOME SIRS CRITERIA, HR 105, WBC 12.6, LOW GRADE FEVER OF 99.5. PT ASKED EXPLICITLY IF HE HAS INFECTIOUS SYMPTOMS, PT STATES HE HAS HAD DYSURIA X 6 MONTHS "BECAUSE I PULLED MY HIP FLEXOR MONTHS AGO." PT DENIES DISCHARGE. THIS WAS DISCUSSED WITH MD MUSTAFA WHO ORDERED CXR/UA. EDMD NOTIFIED PT'S HOME MEDS (ALL PSYCH) HAVE NOT BEEN RECONCILED TO CONTINUE DURING HOSPITALIZATION, RN TO ADDRESS WITH PSYCH STAIN DIPPER DURING ROUNDS.
--- NOTE | 2020-08-18 09:21 | NUR ---
pt placed on hospital bed, room remains secure. sitter monitoring from [facility] for safety. xr at bedside. pt instructed to provide clean catch ua, supples provided. pt verbalizes understanding.
--- NOTE | 2020-08-18 09:55 | NUR ---
report given to BRENNAN Najera at bedside. urine collected and sent to lab. room secure, sitter monitoring from [facility] for safety.
[2020-08-18 10:11] LABS: MICROSCOPIC NOT IND
--- NOTE | 2020-08-18 10:16 | NUR ---
report recived, pt in room no distress
--- NOTE | 2020-08-18 10:50 | NUR ---
pt standing at door, no distress,
--- NOTE | 2020-08-18 11:48 | NUR ---
pt in room, meeting with eden shelby,
[2020-08-18] MEDS ORDERED: DIVALPROEX 500 MG TABLET.DR ONE (12:20)
[2020-08-18] MEDS ORDERED: LURASIDONE 20 MG TABLET PO ONE (12:30)
[2020-08-18] MEDS ORDERED: DIVALPROEX 500 MG TABLET.DR PO ONE (12:30)
--- NOTE | 2020-08-18 12:37 | NUR ---
admin meds, pt in room, no distress, water and meal provided
[2020-08-18 13:42] VITALS: BP 152/82
== END 2020-08-18 14:30 | disposition home or self-care (01) ==
LOC: ED 03:38
DX: F31.2 Bipolar disorder, current episode manic severe with psychotic features (principal); F17.200 Nicotine dependence, unspecified, uncomplicated
CPT/HCPCS: 36415; 71045; 80053; 80299; 80307; 80320; 80329; 81003; 85025; 99285; G0480

== ENCOUNTER 2020-08-19 04:31 | Emergency (ER) | payer MEDICARE ==
[~2020-08-19] VITALS: Ht 188 cm; Wt 87.5 kg
[~2020-08-19 04:31] MED LIST changes: +CLON-364 PO; +DEPAKOTE PO; +ZYPREXA PO
[2020-08-19 04:38] VITALS: BP 134/96
--- NOTE | 2020-08-19 05:10 | NUR ---
Hailey hernandez, dc papers, rx. Dc to jimbo lambert verbalizes understanding of all instruct. Denies SI/HI.
== END 2020-08-19 05:26 | disposition home or self-care (01) ==
LOC: ED 05:00
DX: F20.9 Schizophrenia, unspecified (principal); F29 Unspecified psychosis not due to a substance or known physiological condition; F22 Delusional disorders; Z76.0 Encounter for issue of repeat prescription
CPT/HCPCS: 99281

== ENCOUNTER 2020-08-19 18:48 | Emergency (ER) | payer MEDICARE ==
[~2020-08-19] VITALS: Ht 182.9 cm; Wt 85.0 kg
[~2020-08-19 18:48] MED LIST changes: +LURASIDONE 20 MG TABLET PO ONE
[2020-08-19 18:54] VITALS: BP 135/75
--- NOTE | 2020-08-19 20:00 | NUR ---
MED REQUESTED FROM PHARMACY
== END 2020-08-19 20:27 | disposition home or self-care (01) ==
LOC: ED 20:00
DX: F32.9 Major depressive disorder, single episode, unspecified (principal); F20.9 Schizophrenia, unspecified; F17.210 Nicotine dependence, cigarettes, uncomplicated
CPT/HCPCS: 99283; 99406

== ENCOUNTER 2020-09-21 02:20 | Emergency (ER) | payer MEDICARE ==
[~2020-09-21] VITALS: Ht 177.8 cm; Wt 80.0 kg
[~2020-09-21 02:20] MED LIST changes: -LURASIDONE 20 MG TABLET PO ONE
[2020-09-21] MEDS ORDERED: IBUPROFEN 600 MG TABLET PO ONE (03:30)
[2020-09-21] MEDS ORDERED: NEOSPORIN OINT. PKT 1 PACKET ONE (03:33)
--- NOTE | 2020-09-21 03:49 | NUR ---
PT REFUSED MOTRIN IT DOES NOT HELP WITH HIS NERVE DAMAGE
== END 2020-09-22 03:50 | disposition home or self-care (01) ==
LOC: ED 03:06
DX: S60.812A Abrasion of left wrist, initial encounter (principal); F17.290 Nicotine dependence, other tobacco product, uncomplicated; Z88.4 Allergy status to anesthetic agent; Z88.2 Allergy status to sulfonamides; Z88.8 Allergy status to other drugs, medicaments and biological substances; X58.XXXA Exposure to other specified factors, initial encounter; Y93.89 Activity, other specified; Y92.89 Other specified places as the place of occurrence of the external cause; Y99.8 Other external cause status
CPT/HCPCS: 99282; 99406